=== PATIENT | male | born 1980 | race Caucasian/White ===

== ENCOUNTER 2016-11-20 23:44 | Emergency (ER) | payer MEDICAID, OTHER ==
[2016-11-20 23:50] VITALS: O2SAT 99
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
[2016-11-21 01:26] VITALS: BP 107/67; PULSE 66; RESP 20; TEMP 97.6
--- NOTE | 2016-11-21 08:45 | RAD ---
PROCEDURE: Cervical Spine Radiographs. HISTORY: Pain. COMPARISON: None. FINDINGS: BONES: Cervical spine straightening is present. No subluxation is suggested. Anterior cervical spondylosis with endplate ridging, at C3-C4-C5-C6 and C7 is noted. . No on a vertebral body or posterior element fractures noted. Evaluation of the dens is limited recommend repeat dens views DISC SPACES: The C3-4 through including C6-7 disc spaces are narrowed. SOFT TISSUES: Normal. No prevertebral soft tissue swelling. OTHER FINDINGS: Right C6-7, C5-6 and minimally C4-5 uncovertebral hypertrophy is suggested on the frontal view. . IMPRESSION: Limited view of the dens. Recommend repeat imaging open-mouth imaging to better visualize. The patient appears to have moved on that view. Cervical spine straightening. Right-sided uncovertebral hypertrophy and cervical spondylosis and degenerative disc space narrowing as above. No fracture from C3 through and including C7 appreciated
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
== END 2016-11-21 01:31 | disposition home or self-care (01) ==
LOC: C.ER 23:44
DX: S16.1XXA Strain of muscle, fascia and tendon at neck level, initial encounter (principal); S40.012A Contusion of left shoulder, initial encounter; V49.40XA Driver injured in collision with unspecified motor vehicles in traffic accident, initial encounter
CPT/HCPCS: 72052; 73030; 96372; 99285; J1885